=== PATIENT | female | born 1945 | race Caucasian/White ===

== ENCOUNTER → 2022-12-06 | Outpatient (CLI) | payer MEDICARE, OTHER, SELFPAY ==
--- NOTE | 2022-12-06 15:15 | NEURO_ITS ---
NCS and/or EMG Patient Report Ordering Doctor: Gisela Kyle DATE OF SERVICE: 12/06/22 Bianca electrodiagnostic testing of the upper limbs. She reports numbness and tingling in both hands since September of this year. Electrodiagnostic findings: Right median motor nerve demonstrates prolonged distal latency with normal amplitude and reduced conduction velocity. Left median motor nerve demonstrates normal distal latency with reduced amplitude and borderline reduced conduction velocity. Normal ulnar motor response bilaterally, including conduction across the elbow. Normal median and ulnar F- waves. Median sensory latency at the wrist bilaterally. Prolonged median palmar latency bilaterally. Needle EMG testing was performed in the upper limbs. 1+ complex repetitive discharges noted in the left flexor carpi ulnaris. All other muscles tested showed no evidence of denervation with normal motor unit action potentials. Electrodiagnostic impression: This is an abnormal study in the upper limbs 1. Electrodiagnostic findings suggestive of bilateral median mononeuropathy. This is consistent with a mild to moderate bilateral carpal tunnel syndrome. 2. No electrodiagnostic evidence for ulnar neuropathy, including cubital tunnel syndrome. 3. No electrodiagnostic evidence for cervical radiculopathy. Multi Select Codes Neurology Neurology Interp Codes: 56909-65 Musc test done w/n test comp (interp) (2) and 87778-68 Nrv cndj test 13/> studies (interp)
== END | disposition home or self-care (01) ==
LOC: PSN 13:59
PROVIDERS: PCP Physician Assistant; Referring Provider Physician Assistant; Visit Provider Physician Assistant
DX: R20.0 Anesthesia of skin (principal)
CPT/HCPCS: 95886; 95913